=== PATIENT | female | born 1995 | race Caucasian/White ===

== ENCOUNTER → 2022-08-22 | Outpatient (CLI) | payer MEDICAID | LOC: DIA.ED 08:51 | DX: O24.419 Gestational diabetes mellitus in pregnancy, unspecified control (principal) | CPT/HCPCS: G0108 ==

== ENCOUNTER → 2022-08-31 | Outpatient (CLI) | payer MEDICAID | LOC: DIA.ED 13:14 | DX: O24.419 Gestational diabetes mellitus in pregnancy, unspecified control (principal) ==

== ENCOUNTER → 2022-10-03 | Outpatient (CLI) | payer MEDICAID | LOC: DIA.ED 10:09 | DX: O24.419 Gestational diabetes mellitus in pregnancy, unspecified control (principal) | CPT/HCPCS: G0108 ==

== ENCOUNTER 2022-10-24 06:04 | Inpatient (IN) | payer MEDICAID ==
[2022-10-24] VITALS (48 sets, daily range): BP systolic 107–162; BP diastolic 39–95; PULSE 07–111; TEMP 97.6–99.5
[~2022-10-24] VITALS: Ht 154.9 cm; Wt 80.0 kg
[2022-10-24] MEDS ORDERED: PRENATAL TABLET PO (06:48)
[2022-10-24] MEDS ORDERED: CLARITIN 1010 MG/TAB PO (06:49)
[2022-10-24] MEDS ORDERED: PROFERRIN ES12 MG PO (06:49)
--- NOTE | 2022-10-24 07:01 | NUR ---
Pt and boyfriend arrive ambulatory to unit at 0605, pt changes into gown, EFM explained and placed, VS taken. Pt visibly uncomfortable, reports contractions since 0230. Pt unsure if leaking fluid, denies vaginal bleeding, and reports normal movement. Amnitest done, negative. SVE /-2 with bulging bag, contractions moderate on palpation. Assessments done, questions invited and answered. Plan of labor check discussed with pt, pt verbalizes understanding, denies needs at this time.
--- NOTE | 2022-10-24 07:40 | NUR ---
Repeat SVE at 0715 /2, Dr. Ayala notified, orders to admit. Pt informed of plan, verbalizes understanding. IV started at 0745, labs drawn, LR started per protocol. Consents discussed and signed. Pt informed that [employer] available for epidural after ongoing , pt understands and requests epidural when she is available.
[2022-10-24 08:26] LABS: BASO % 0.2 % (0.0-2.0); GRAN # 14.2 K/mm3 (1.4-6.5); GRAN % 87.1 % (42.2-75.2); HEMATOCRIT 39.8 % (37.0-47.0); HEMOGLOBIN 13.9 g/dl (12.5-16.0); LYMPH # 1.3 K/mm3 (1.2-3.4); LYMPH % 7.7 % (20.0-51.0); MEAN CELL VOLUME 79 fl (80.0-100.0); MEAN CORPUSCULAR HEMOGLOBIN 28 pg (27-31); MEAN CORPUSCULAR HGB CONC 35 g/dl (33.0-37.0); MEAN PLATELET VOLUME 11.4 fl (7.4-10.4); MONO # 0.7 K/mm3 (0.1-0.6); MONO % 4.4 % (1.7-9.3); PLATELET COUNT 253 K/mm3 (130-400); RED BLOOD COUNT 5.04 M/mm3 (4.10-5.30); REDCELL DISTRIBUTION WIDTH-CV 16.1 % (11.5-14.5)
[2022-10-24 08:55] LABS: ALBUMIN 3.4 gm/dL (3.5-5.0); BILIRUBIN,TOTAL 0.7 mg/dL (0.2-1.2); CALCIUM 9.5 mg/dL (8.4-10.2); CREATININE, serum 1.11 mg/dL (0.57-1.11); POTASSIUM 3.7 mmol/L (3.5-4.5); TOTAL PROTEIN 7.3 gm/dL (6.2-8.1)
--- NOTE | 2022-10-24 10:06 | NUR ---
0808 - Dr. Ayala to bedside. US done, vertex presentation confirmed. 0835 - YUMIKO Benitez to bedside. Pt consents to epidural and repositioned for procedure. 0846 - Pt repositioned following epidural placement, to low fowlers with left shift. 0925 - Pt repositioned WR.
--- NOTE | 2022-10-24 14:00 | NUR ---
1240 - Dr. Ayala to bedside. AROM discussed with pt, verbal consent obtained. AROM at 1243, [facility] fluid noted. SVE per provider /-3
--- NOTE | 2022-10-24 14:32 | NUR ---
Pt reports feeling rectal pressure, states pressure is constant. Permission given for cervical check, SVE /-3.
--- NOTE | 2022-10-24 16:33 | NUR ---
Dr. Ayala to bedside. SVE per provider /3. Discussion with pt regarding starting of pitocin to increase contraction frequency and strength. Pt verbalizes understanding and consent.
--- NOTE | 2022-10-24 17:08 | NUR ---
Subtle late decelerations noted with contractions at 1655 and 1700. Pt sitting low fowlers WL, position change to WR.
--- NOTE | 2022-10-24 18:38 | NUR ---
Pt reports constant pain across lower abdomen, is visibly uncomfortable. Pt reports having pushed epidural button a couple times but has not gotten relief. YUMIKO Benitez notified, to bedside at 1630
--- NOTE | 2022-10-24 19:22 | NUR ---
PATIENT AWAKE AND VERY QUITE. STATES HAVING PAIN IN LOWER ABD. ANEST CALLED. CONVINCED PATIENT TO TURN TO LEFT SIDE WITH PEANUT BALL BETWEEN HER LEGS.
--- NOTE | 2022-10-24 19:26 | NUR ---
PATIENT REMAINS ON LEFT SIDE STATES MORE COMFORTABLE.
--- NOTE | 2022-10-24 19:28 | NUR ---
PATIENT B.S. 82 AT THIS TIME.
--- NOTE | 2022-10-24 19:41 | NUR ---
DR REGALADO CALLED IN TO CHECK ON PATIENT. INFORMED OF STATUS. WILL CALL HIM BACK AT 1999. PATIENT SLEEPING.
[2022-10-25] VITALS (7 sets, daily range): BP systolic 101–159; BP diastolic 58–90; PULSE 66–87; TEMP 97.6–99.5
--- NOTE | 2022-10-25 00:27 | NUR ---
PATIENT COMPLETE DR REGALADO NOTIFIED OF DILATION. PATIENT INTSTRUCTED ON HOW TO PUSH.
--- NOTE | 2022-10-25 00:33 | NUR ---
ROBLEDO CATH REMOVED WITH 100CC JUAN FLUID OUT.
--- NOTE | 2022-10-25 00:39 | NUR ---
PATIENT PUSHING WITH INSTRUCTIONS.
--- NOTE | 2022-10-25 01:18 | NUR ---
PATIENT TURNED TO LEFT SIDE TO PUSH.
--- NOTE | 2022-10-25 01:31 | NUR ---
PATIENT TURNED TO RIGHT SIDE FOR PUSHING.
--- NOTE | 2022-10-25 01:50 | NUR ---
PATIENT TURNED WITH EVERY 3 PUSHES. TOLERATING WELL. NO PUSHING WELL [facility] CALLED REQUESTING CHANGE IN EPIDURAL INSTRUCTED TO TURN EPIDURAL OFF FOR A SHORT TIME. ANEST WILL COME IN AND TURN BACK ON FOR DELIVERY.
--- NOTE | 2022-10-25 01:55 | NUR ---
PATIENT PUSHING BETTER FEELING CONTRACTIONS MORE
--- NOTE | 2022-10-25 01:58 | NUR ---
2224DR CALLED WITH REPORT OF PATIENT STATUS. STATES HE WILL BE RIGHT IN.
--- NOTE | 2022-10-25 02:04 | NUR ---
DR HERE DISCUSSING PROGRESS AND WHAT TO DO. PATIENT AGREE TO FORCEPSWITH PUSHING.
--- NOTE | 2022-10-25 02:08 | NUR ---
FORCEPS APPLIED AT 2302
--- NOTE | 2022-10-25 03:27 | NUR ---
2309 PLACENTA OUT PIT BOLUS.
--- NOTE | 2022-10-25 03:29 | NUR ---
HELPED BABY TO BREAST.
[2022-10-25 05:47] LABS: HEMATOCRIT 31.1 % (37.0-47.0); HEMOGLOBIN 10.8 g/dl (12.5-16.0)
--- NOTE | 2022-10-25 09:52 | NUR ---
Initial visit; Patient and her mother thanked [employer] for offering congratulations and God's blessings for the of their daughter and grand-daughter. [facility] thanked family for choosing [facility].
[2022-10-25] MEDS ORDERED: IBU600 MG PO (11:48)
[2022-10-25] MEDS ORDERED: TYLENOL 500MG500 MG PO (11:48)
--- NOTE | 2022-10-25 21:05 | NUR ---
THIS NURSE TO MOTHER'S ROOM TO ADMINISTER MEDICATION AND DISCUSS WATCHING EDUCATIONAL VIDEOS. DISCUSSED EDUCATIONAL VIDEOS WITH PARENTS, PARENTS REQUESTED TO WATCH THEM NOW. TELEVISION BROUGHT TO MOTHER'S ROOM AND VIDEOS BEGAN. PARENTS STATED THEY WOULD LET THIS RN KNOW WHEN VIDEOS WERE COMPLETED.
[2022-10-26 08:22] VITALS: BP 134/90; PULSE 80; TEMP 97.7
== END 2022-10-26 11:30 | disposition home or self-care (01) | DRG 768 ==
LOC: LDRO 06:04 → LDR 07:32 → OB 07:32 → EDSTATUS 07:41 → OB 10-25 05:14
PROVIDERS: ADMIT Obstetrics & Gynecology
PROC: 10D07Z3 Extraction of Products of Conception, Low Forceps, Via Natural or Artificial Opening (ICD-10-PCS; principal; 2022-10-24)
PROC: 0DQR0ZZ Repair Anal Sphincter, Open Approach (ICD-10-PCS; 2022-10-24)
DX: O24.420 Gestational diabetes mellitus in childbirth, diet controlled (principal); Z37.0 Single live birth; O70.20 Third degree perineal laceration during delivery, unspecified; O76 Abnormality in fetal heart rate and rhythm complicating labor and delivery; O77.0 Labor and delivery complicated by meconium in amniotic fluid; O99.02 Anemia complicating childbirth; D64.9 Anemia, unspecified; O99.892 Other specified diseases and conditions complicating childbirth; M54.40 Lumbago with sciatica, unspecified side; Z3A.39 39 weeks gestation of pregnancy
CPT/HCPCS: J0690; J2795; J7120